=== PATIENT | female | born 1990 | race Caucasian/White ===

== ENCOUNTER 2020-10-08 09:20 | Inpatient (IN) ==
[2020-10-08] MEDS ORDERED: Azithromycin 500 MG in 0.9 % Sodium Chloride 250 ML IVPB ONE (09:33)
[2020-10-08] MEDS ORDERED: Metoclopramide 10 MG/2 ML VIAL IVP PRN (09:33)
[2020-10-08] MEDS ORDERED: Naloxone 0.4 MG/ML INJ IVP PRN (09:33)
[2020-10-08] MEDS ORDERED: Ondansetron 4 MG/2 ML VIAL IVP PRN (09:33)
[2020-10-08] MEDS ORDERED: Lidocaine 1% 20 ML MDV INFILT PRN (09:33)
[2020-10-08] MEDS ORDERED: Famotidine 20 MG/2 ML VIAL IVP PRN (09:33)
[2020-10-08] MEDS ORDERED: *HR* Nalbuphine 10 MG/ML AMPUL IV PRN (09:33)
[2020-10-08] MEDS ORDERED: Oxytocin 20 units/ LR 1000 mL 20 UNIT/1,000 ML BAG IVC SCH ×2 (09:45→18:47)
[2020-10-08] MEDS ORDERED: Ringers Solution, Lactated 1,000 ML IVC SCH (09:45)
[2020-10-08] MEDS ORDERED: EPHEDrine 50 MG/ML VIAL IVP PRN (10:01)
[2020-10-08] MEDS ORDERED: Epidural Premix (fent/bupiv) 110 ML EP SCH (10:15)
[2020-10-08 10:45] LABS: Basophils % 0.4 %; Eosinophils % 0.2 %; Hematocrit 39.2 % (35.3-44.9); Hemoglobin 13.3 g/dL (11.5-15.4); Immature Granulocytes % 1.4 % (0-4); Lymphocytes # 1.8 K/mcL (0.6-4.6); Lymphocytes % 19.3 %; Mean Corpuscular HGB Conc 33.9 g/dL (31.6-35.5); Mean Corpuscular Hemoglobin 30.9 pg (28.0-33.3); Mean Platelet Volume 10.5 fL (9.4-12.4); Monocytes # 0.6 K/mcL (0.0-1.3); Monocytes % 6.1 %; Neutrophils # 6.8 K/mcL (1.6-8.9); Platelet Count 224 K/mcL (140-400); Red Blood Count 4.31 M/mcL (3.82-4.97); Red Cell Distribution Width 12.9 % (11.5-14.5); Segmented Neutrophils % 72.6 %; White Blood Count 9.3 K/mcL (4.3-11.1)
[2020-10-08 11:54] LABS: Amphetamine Screen,Urine Negative ng/mL (Cutoff=1000); Barbiturate Screen,Urine Negative ng/mL (Cutoff=200); Benzodiazepines Screen,Urine Negative ng/mL (Cutoff=200); Cannabinoid Screen,Urine Negative ng/mL (Cutoff = 50); Cocaine Screen,Urine Negative ng/mL (Cutoff= 300); Opiate Screen,Urine Negative ng/mL (Cutoff=300); Phencyclidine Screen,Urine Negative ng/mL (Cutoff=25)
[2020-10-08] MEDS ORDERED: Acetaminophen 325 MG TABLET PO PRN (18:47)
[2020-10-08] MEDS ORDERED: Ibuprofen 600 MG TABLET PO PRN (18:47)
[2020-10-08] MEDS ORDERED: Benzocaine/Menthol 56 GM AEROSOL SPRAY TP PRN (18:47)
[2020-10-08] MEDS ORDERED: Lanolin 7 G OINT...G. TP PRN (18:47)
[2020-10-08] MEDS ORDERED: Ringers Solution, Lactated 1,000 ML ONE (19:08)
[2020-10-09] MEDS ORDERED: Prenatal Vit/FA 1 EACH TABLET PO SCH (09:00)
[2020-10-09 09:21] LABS: Basophils % 0.3 %; Eosinophils % 0.1 %; Hematocrit 37.8 % (35.3-44.9); Hemoglobin 12.5 g/dL (11.5-15.4); Immature Granulocytes % 0.7 % (0-4); Lymphocytes # 1.6 K/mcL (0.6-4.6); Lymphocytes % 15.5 %; Mean Corpuscular HGB Conc 33.1 g/dL (31.6-35.5); Mean Corpuscular Volume 93.8 fL (83.0-100.0); Mean Platelet Volume 9.9 fL (9.4-12.4); Monocytes # 0.6 K/mcL (0.0-1.3); Monocytes % 6.1 %; Neutrophils # 7.9 K/mcL (1.6-8.9); Platelet Count 200 K/mcL (140-400); Red Blood Count 4.03 M/mcL (3.82-4.97); Segmented Neutrophils % 77.3 %; White Blood Count 10.2 K/mcL (4.3-11.1)
[2020-10-09] MEDS ORDERED: NIFEdipine XL (24 HR) 30 MG TAB.ER.24 PO SCH (09:45)
[2020-10-09 09:58] LABS: Aspartate Amino Transferase 24 Units/L (13-39); BUN/Creatinine Ratio 10 (6-26); Blood Urea Nitrogen 6 mg/dL (6-20); Lactate Dehydrogenase 202 Units/L (140-271); eGFR For African Americans > 60 (> 60); eGFR For Non-African Americans > 60 (> 60)
[2020-10-09 10:53] LABS: Alanine Aminotransferase 13 Units/L (7-52)
[2020-10-09 14:58] VITALS: BP 124/78
== END 2020-10-09 18:51 | disposition home or self-care (01) | DRG 560 ==
LOC: 1NENULAB 09:20 → 1NENUOBS 21:44
PROVIDERS: ADMIT Registered Nurse; ATTEND Registered Nurse